=== PATIENT | male | born 1985 | race Caucasian/White ===

== ENCOUNTER 2018-11-22 14:09 | Emergency (ER) | payer OTHER ==
[~2018-11-22] VITALS: Ht 200.7 cm; Wt 145.1 kg
--- NOTE | 2018-11-22 14:15 | NUR ---
PT BIBRA FROM HOME FOR DIZZINESS; PT [id number], PT ON MONITOR, VSS, NAD NOTED, PENDING MD CARREON
[2018-11-22] MEDS ORDERED: LORAZEPAM INJ 2 MG/ML VIAL IV ONE (14:30)
[2018-11-22] MEDS ORDERED: IV NS 0.9% 1,000 ML BAG IV ONE (14:30)
[2018-11-22] MEDS ORDERED: MECLIZINE HCL 12.5 MG TABLET PO ONE (14:30)
[2018-11-22 14:35] LABS: BASOPHILS % (AUTO) 0.8 % (0.0-2.0); EOSINOPHILS % (AUTO) 1.6 % (0.0-6.0); HEMATOCRIT 44 % (39-51); HEMOGLOBIN 15.3 g/dL (13.5-17.5); LYMPHOCYTES % (AUTO) 32.4 % (20.0-44.0); MEAN CORPUSCULAR HGB CONC 35 g/dl (31.0-36.0); MEAN CORPUSCULAR VOLUME 89 fL (80-96); MONOCYTES # (AUTO) 0.5 /CMM (0.1-1.30); MONOCYTES % (AUTO) 7.9 % (2.0-12.0); NEUTROPHILS # (AUTO) 3.6 /CMM (1.8-8.9); NEUTROPHILS % (AUTO) 57.3 % (43.0-81.0); PLATELET COUNT (AUTO) 211 /CMM (150-450); RED BLOOD CELL COUNT(AUTO) 4.99 MIL/uL (4.5-6.0); WHITE BLOOD COUNT (AUTO) 6.2 K/uL (4.3-11.0)
[2018-11-22] MEDS ORDERED: MECLIZINE HCL 25 MG TABLET ONE (14:42)
[2018-11-22] MEDS ORDERED: LORAZEPAM INJ 2 MG/ML VIAL ONE (14:42)
[2018-11-22 14:45] LABS: CALCIUM, SERUM 9.4 mg/dL (8.5-10.1); POTASSIUM 3.4 mmol/L (3.5-5.1)
[2018-11-22 15:38] VITALS: BP 130/81
--- NOTE | 2018-11-22 15:39 | NUR ---
IV removed. Catheter intact and site benign. Pressure and 4x4 applied to site. No bleeding noted.Patient discharged to home in stable condition. Written and verbal after care instructions given. Patient verbalizes understanding of instruction.
== END 2018-11-22 15:40 | disposition home or self-care (01) ==
LOC: ER 14:10
DX: H81.392 Other peripheral vertigo, left ear (principal)
CPT/HCPCS: 36415; 70450; 80048; 85025; 93005; 96361; 96374; 99284; A4606; J2060; J7030; J8597